=== PATIENT | female | born 1950 | race African-American/Black ===

== ENCOUNTER 2025-06-16 09:42 | Emergency (ER) | payer OTHER ==
[~2025-06-16] VITALS: Ht 139.7 cm; Wt 50.0 kg
[2025-06-16 09:51] VITALS: O2SAT 98
[2025-06-16 11:08] LABS: CLARITY URINE CLEAR (CLEAR); COLOR URINE YELLOW (YELLOW); GLUCOSE URINE NEGATIVE (NEGATIVE); KETONES URINE NEGATIVE (NEGATIVE); LEUKOCYTE ESTERASE URINE NEGATIVE (NEGATIVE); NITRITE URINE NEGATIVE (NEGATIVE); OCCULT BLOOD URINE NEGATIVE (NEGATIVE); PH URINE 5.5 (4.5-8.0); PROTEIN URINE NEGATIVE (NEGATIVE); SPECIFIC GRAVITY URINE 1.016 (1.005-1.030); UROBILINOGEN URINE 0.2 E.U./dL (0.2-1.0)
[2025-06-16 11:25] LABS: *AMPHETAMINES SCREEN URINE NEGATIVE (NEGATIVE); *BARBITURATES SCREEN URINE NEGATIVE (NEGATIVE); *BENZODIAZEPINES SCREEN URINE NEGATIVE (NEGATIVE); *COCAINE SCREEN URINE NEGATIVE (NEGATIVE); CANNABINOID URINE SCREEN NEGATIVE (NEGATIVE); ECSTASY MDMA SCREEN URINE NEGATIVE (NEGATIVE); METHADONE URINE SCREEN NEGATIVE (NEGATIVE); OPIATES URINE SCREEN PRESUMPTIVE POSITIVE (NEGATIVE); PHENCYCLIDINE URINE SCREEN NEGATIVE (NEGATIVE)
[2025-06-16] MEDS: ONDANSETRON HCL 4MG/2ML INJ IV ONE (14:34)
[2025-06-16] MEDS: SODIUM CHLORIDE 0.9% 1,000 ML IV ONE (14:34)
[2025-06-16 15:09] LABS: BASOPHILS % 0.4 % (0.0-2.0); EOSINOPHILS % 0.1 % (0.0-5.0); HEMATOCRIT. 32.3 % (36.0-48.0); HEMOGLOBIN. 10.5 g/dL (12.0-16.0); LYMPHOCYTES % 14.6 % (20.0-50.0); MEAN PLATELET VOLUME 10.3 fl (7.4-10.4); MONOCYTES % 6.9 % (2.0-8.0); NEUTROPHILS % 78.0 % (40.0-76.0); PLATELET 192 x1000/uL (130-400); RED BLOOD CELL COUNT 3.71 mill/uL (4.2-5.4); RED CELL DISTRIBUTION WIDTH 15.5 % (11.6-14.6)
[2025-06-16 15:26] LABS: CREATININE 0.9 mg/dL (0.6-1.0); TROPONIN I HIGH SENSITIVITY 8 ng/L (3.0-34)
[2025-06-16 15:27] LABS: UREA NITROGEN BLOOD 9 mg/dL (9-23)
[2025-06-16 15:28] LABS: ASPARTATE AMINOTRANSFERASE 27 IU/L (<34); BILIRUBIN DIRECT 0.2 mg/dL (<=3.0)
[2025-06-16 15:29] LABS: BILIRUBIN TOTAL 0.5 mg/dL (0.1-1.0); PROTEIN TOTAL 6.8 g/dL (6.0-8.3)
[2025-06-16] MEDS ORDERED: ONDA-239 PO (15:47)
[2025-06-16 16:23] VITALS: TEMP 36.7
[2025-06-16 17:09] VITALS: BP 130/67; PULSE 70; RESP 18; O2SAT 100
[2025-06-16 17:52] LABS: TROPONIN I HIGH SENSITIVITY 10 ng/L (3.0-34)
== END 2025-06-16 18:36 | disposition home or self-care (01) ==
LOC: ER 09:42
DX: R11.2 Nausea with vomiting, unspecified (principal); I10 Essential (primary) hypertension; I34.81 Nonrheumatic mitral (valve) annulus calcification; J45.909 Unspecified asthma, uncomplicated; Z88.5 Allergy status to narcotic agent; Z96.643 Presence of artificial hip joint, bilateral; Z79.899 Other long term (current) drug therapy
CPT/HCPCS: 99285; 74176; 96374; 71045; 80076; 80305; 80048; 83690; 85025; 84484; 36415; 93005; 81003; J2405; J7030; A4606